=== PATIENT | female | born 1960 | race Caucasian/White ===

== ENCOUNTER → 2018-01-09 | Day surgery (SDC) | payer OTHER | LOC: AMB 05:46 | PROVIDERS: ATTEND Family Medicine | DX: Z12.11 Encounter for screening for malignant neoplasm of colon (principal) ==

== ENCOUNTER 2018-02-17 05:50 | Day surgery (SDC) | payer BC, OTHER ==
[2018-02-17] MEDS ORDERED: LACTATED RINGERS 1,000 ML ONE (06:57)
[2018-02-17] MEDS ORDERED: fentaNYL CITRATE INJ 50 MCG/ML AMP ONE (07:10)
[2018-02-17] MEDS ORDERED: MIDAZOLAM INJ 2 MG/2 ML VIAL ONE (07:10)
[2018-02-17] MEDS ORDERED: LACTATED RINGERS 1,000 ML BAG IV ONE (07:20)
--- NOTE | 2018-02-17 08:32 | OP ---
DATE OF PROCEDURE: 02/17/18 PREOPERATIVE DIAGNOSIS: 1. Colon cancer screen. POSTOPERATIVE DIAGNOSIS: 1. Diverticulosis of the sigmoid colon. PROCEDURE: 1. Colonoscopy. SURGEON: David Alston MD. ANESTHESIA: MAC by Jose Carlos Calderon CRNA. ESTIMATED BLOOD LOSS: None. COMPLICATIONS: None apparent. TECHNIQUE: After informed consent was obtained from the patient, the patient was taken to the Endoscopy Suite and put in the left lateral decubitus position. After adequate IV sedation was obtained, a digital rectal exam was performed which revealed decreased sphincter tone, but no intraluminal masses. The colonoscope was then passed with good visualization through the colon. The bowel prep was excellent. There were a moderate amount of scattered diverticula in the sigmoid colon. The rest of the colon looked normal. The cecum was identified by the typical landmarks including ileocecal valve and appendiceal orifice. The scope was then withdrawn slowly over the next 8 minutes and a good look at the entire colonic wall was obtained. Outside of the diverticular disease, there were no mucosal abnormalities seen. The scope was removed. The patient tolerated the procedure well. The patient was transported to the outpatient area in good condition. She is encouraged to maintain a high fiber diet. Her next colonoscopy is due in one year. She will followup with me on a p.r.n. basis. #[id number] MTDD
[2018-02-17] MEDS ORDERED: PROPOFOL 200 MG/20 ML VIAL IV ONE (10:00)
[2018-02-17] MEDS ORDERED: LIDOCAINE 1% 10 ML VIAL INJ ONE (10:00)
[2018-02-17 10:09] VITALS: BP 127/84; TEMP 96.7; O2SAT 100
== END 2018-02-17 08:45 | disposition home or self-care (01) ==
LOC: AMB 05:50
PROVIDERS: ATTEND Family Medicine
DX: Z12.11 Encounter for screening for malignant neoplasm of colon (principal); K57.30 Diverticulosis of large intestine without perforation or abscess without bleeding; J45.909 Unspecified asthma, uncomplicated; D64.9 Anemia, unspecified; Z85.3 Personal history of malignant neoplasm of breast; Z79.899 Other long term (current) drug therapy
CPT/HCPCS: 00812; 45378; J2250; J3010; J3490; J7120